=== PATIENT | male | born 1945 | race African-American/Black ===

== ENCOUNTER 2017-11-06 07:54 | Outpatient (CLI) | payer OTHER ==
[2017-11-06 08:26] LABS: PLATELET COUNT 170 K/uL (142-355)
[2017-11-06 08:33] LABS: POTASSIUM 4.7 mmol/L (3.6-5.2)
== END 2017-11-06 21:54 | disposition home or self-care (01) ==
LOC: LABW 07:54
PROVIDERS: Family Medicine
DX: I63.8 Other cerebral infarction (principal); I10 Essential (primary) hypertension; I48.91 Unspecified atrial fibrillation; R82.99 Other abnormal findings in urine
CPT/HCPCS: 36415; 80053; 80061; 81000; 82306; 84439; 84443; 85027; 85610; 87077; 87086; 87088; 87186

== ENCOUNTER 2017-11-09 07:51 | Outpatient (CLI) | payer OTHER | END 2017-11-09 19:18 | disposition home or self-care (01) | LOC: LABW 07:51 | DX: N18.3 Chronic kidney disease, stage 3 (moderate) (principal); R73.9 Hyperglycemia, unspecified | CPT/HCPCS: 36415; 83036 ==

== ENCOUNTER 2017-12-17 07:54 | Outpatient (CLI) | payer OTHER | END 2017-12-17 19:55 | disposition home or self-care (01) | LOC: LABW 07:54 | DX: I48.91 Unspecified atrial fibrillation (principal) | CPT/HCPCS: 36415; 85610 ==

== ENCOUNTER 2018-01-16 09:21 | Outpatient (CLI) | payer OTHER | END 2018-01-16 19:21 | disposition home or self-care (01) | LOC: LABW 09:21 | DX: I48.91 Unspecified atrial fibrillation (principal) | CPT/HCPCS: 36415; 85610 ==

== ENCOUNTER 2018-02-13 08:16 | Outpatient (CLI) | payer OTHER | END 2018-02-13 22:30 | disposition home or self-care (01) | LOC: LABW 08:16 | DX: I48.91 Unspecified atrial fibrillation (principal) | CPT/HCPCS: 36415; 85610 ==

== ENCOUNTER 2018-02-25 08:15 | Outpatient (CLI) | payer OTHER | END 2018-02-25 21:58 | disposition home or self-care (01) | LOC: LABW 08:15 | DX: I48.91 Unspecified atrial fibrillation (principal) | CPT/HCPCS: 36415; 85610 ==

== ENCOUNTER 2018-03-04 08:30 | Outpatient (CLI) | payer OTHER | END 2018-03-04 19:35 | disposition home or self-care (01) | LOC: LABW 08:30 | DX: I48.91 Unspecified atrial fibrillation (principal) | CPT/HCPCS: 36415; 85610 ==

== ENCOUNTER 2018-04-05 08:10 | Outpatient (CLI) | payer OTHER | END 2018-04-05 23:24 | disposition home or self-care (01) | LOC: LABW 08:10 | DX: I48.91 Unspecified atrial fibrillation (principal) | CPT/HCPCS: 36415; 85610 ==

== ENCOUNTER 2018-04-11 08:17 | Outpatient (CLI) | payer OTHER | END 2018-04-11 19:40 | disposition home or self-care (01) | LOC: LABW 08:17 | DX: I48.91 Unspecified atrial fibrillation (principal) | CPT/HCPCS: 36415; 85610 ==

== ENCOUNTER 2018-04-19 07:39 | Outpatient (CLI) | payer OTHER | END 2018-04-19 22:15 | disposition home or self-care (01) | LOC: LABW 07:39 | DX: I48.91 Unspecified atrial fibrillation (principal) | CPT/HCPCS: 36415; 85610 ==

== ENCOUNTER 2018-06-05 08:16 | Outpatient (CLI) | payer OTHER | END 2018-06-05 20:28 | disposition home or self-care (01) | LOC: LABW 08:16 | DX: I48.91 Unspecified atrial fibrillation (principal) | CPT/HCPCS: 36415; 85610 ==

== ENCOUNTER 2018-07-08 08:34 | Outpatient (CLI) | payer OTHER | END 2018-07-08 22:46 | disposition home or self-care (01) | LOC: LABW 08:34 | DX: I48.91 Unspecified atrial fibrillation (principal) | CPT/HCPCS: 36415; 85610 ==

== ENCOUNTER 2018-08-09 08:16 | Outpatient (CLI) | payer OTHER | END 2018-08-09 19:10 | disposition home or self-care (01) | LOC: LABW 08:16 | DX: I48.91 Unspecified atrial fibrillation (principal) | CPT/HCPCS: 36415; 85610 ==

== ENCOUNTER 2018-08-27 09:24 | Outpatient (CLI) | payer OTHER | END 2018-08-27 19:06 | disposition home or self-care (01) | LOC: LABW 09:24 | DX: I48.91 Unspecified atrial fibrillation (principal) | CPT/HCPCS: 36415; 85610 ==

== ENCOUNTER 2018-09-13 08:22 | Outpatient (CLI) | payer OTHER | END 2018-09-13 19:36 | disposition home or self-care (01) | LOC: LABW 08:22 | DX: I48.91 Unspecified atrial fibrillation (principal) | CPT/HCPCS: 36415; 85610 ==